=== PATIENT | male | born 1960 | race Caucasian/White ===

== ENCOUNTER 2017-08-31 02:00 | Emergency (ER) | payer BC ==
[~2017-08-31] VITALS: Ht 180.3 cm; Wt 68.0 kg
[2017-08-31 02:59] LABS: ALBUMIN 3.6 g/dL (3.4-5.0); ALKALINE PHOSPHATASE 57 U/L (46-116); ALT/SGPT 28 U/L (16-63); AST/SGOT 35 U/L (15-37); BILIRUBIN TOTAL 0.37 mg/dL (0.20-1.00); CALCIUM 7.8 mg/dL (8.5-10.1); CARBON DIOXIDE 22.7 mmol/L (21-32); CHLORIDE SERUM 86 mmol/L (98-107); GFR1 > 60 mL/min; GLUCOSE SERUM 101 mg/dL (74-106); POTASSIUM SERUM 3.3 mmol/L (3.5-5.1); TOTAL PROTEIN, SERUM 6.8 g/dL (6.4-8.2)
[2017-08-31 03:00] LABS: SODIUM SERUM 120 mmol/L (136-145)
[2017-08-31 03:13] LABS: BASOPHIL % 0.2 % (0-2); PLATELET COUNT 382 x10^3mcL (130-400)
[2017-08-31 03:15] LABS: RED CELL DISTRIBUTION WIDTH 22.9 % (11.5-14.5)
[2017-08-31] MEDS ORDERED: CHLORTHALIDONE25 MG PO (03:56)
[2017-08-31] MEDS ORDERED: OMEPRAZOLE40 M1 PO (03:57)
[2017-08-31] MEDS ORDERED: DIOVAN320 MG PO (03:57)
[2017-08-31] MEDS ORDERED: POTASSIUM CHLO10 MEQ PO (03:58)
[2017-08-31] MEDS ORDERED: ANORO ELLIPTA1 POW IH (03:59)
[2017-08-31] MEDS ORDERED: AMOXICILLIN500 MG PO (04:01)
[2017-08-31 05:44] LABS: CHOLESTEROL/HDL RATIO 2.6; MAGNESIUM 2.1 mg/dL (1.8-2.4); PHOSPHOROUS 3.3 mg/dL (2.5-4.9)
[2017-08-31 05:46] LABS: T3 TOTAL 0.96 ng/mL
[2017-08-31 05:47] LABS: IRON 13 ug/dL (65-170); TOTAL IRON BINDING CAPACITY 416 ug/dL (250-450)
[2017-08-31 05:52] VITALS: BP 104/70
[2017-08-31 05:58] LABS: RED BLOOD CELLS 4.07 M/mm3 (4.52-5.90)
[2017-08-31 06:04] LABS: FREE T4 1.18 ng/dL (0.76-1.46); FREE THYROXINE INDEX 2.6 ug/dL (1.4-4.5); T4(THYROXINE) 6.3 ug/dL (4.7-13.3)
[2017-08-31 06:23] LABS: microscopic required? NO
[2017-08-31 06:24] LABS: CALCIUM 7.2 mg/dL (8.5-10.1); CARBON DIOXIDE 20.3 mmol/L (21-32); CHLORIDE SERUM 89 mmol/L (98-107); CREATININE SERUM 0.9 mg/dL (0.7-1.3); GFR1 > 60 mL/min; GLUCOSE SERUM 93 mg/dL (74-106); POTASSIUM SERUM 3.6 mmol/L (3.5-5.1)
[2017-08-31 06:33] LABS: SODIUM SERUM 123 mmol/L (136-145)
[2017-08-31 07:01] LABS: UA SPECIFIC GRAVITY <=1.005 (1.005-1.035); urine erythrocyte NEGATIVE (NEGATIVE)
[2017-08-31 07:15] LABS: AMPHETAMINE QUAL UR NONE DETECTED (NEG <=1000)
[2017-08-31] MEDS ORDERED: ATI1 PO (10:33)
[2017-08-31] MEDS ORDERED: FOL1 PO (10:33)
[2017-08-31] MEDS ORDERED: THI100 PO (10:34)
[2017-08-31] MEDS ORDERED: THERAGRAN-M1 TA4 PO (10:34)
[2017-08-31 11:08] LABS: CALCIUM 7.4 mg/dL (8.5-10.1); CARBON DIOXIDE 24.3 mmol/L (21-32); CHLORIDE SERUM 95 mmol/L (98-107); CREATININE SERUM 0.8 mg/dL (0.7-1.3); GFR1 > 60 mL/min; GLUCOSE SERUM 99 mg/dL (74-106); POTASSIUM SERUM 3.5 mmol/L (3.5-5.1); SODIUM SERUM 129 mmol/L (136-145)
[2017-08-31] MEDS ORDERED: LIB10 PO (15:28)
[2017-08-31 16:21] VITALS: BP 114/58
== END 2017-08-31 16:21 | disposition home or self-care (01) ==
LOC: ED 02:00 → IC 04:26 → ED 04:26 → DU 04:26 → IC 07:27 → DU 07:27 → IC 07:27 → ED 16:21
PROVIDERS: Emergency Medicine; Family Medicine
DX: F10.129 Alcohol abuse with intoxication, unspecified (principal); G93.41 Metabolic encephalopathy; G92 Toxic encephalopathy; K85.90 Acute pancreatitis without necrosis or infection, unspecified; E87.1 Hypo-osmolality and hyponatremia; S09.90XA Unspecified injury of head, initial encounter; K21.9 Gastro-esophageal reflux disease without esophagitis; E78.1 Pure hyperglyceridemia; E87.8 Other disorders of electrolyte and fluid balance, not elsewhere classified; J44.9 Chronic obstructive pulmonary disease, unspecified; E87.6 Hypokalemia; W18.39XA Other fall on same level, initial encounter; Y93.89 Activity, other specified; Y92.013 Bedroom of single-family (private) house as the place of occurrence of the external cause
CPT/HCPCS: 83880; 84439; G0480; J2250; J2405; J2765; J2916; J3411; J3475; J3480; J3490; J7030; J7620; J7626